=== PATIENT | male | born 1945 | race Caucasian/White ===

== ENCOUNTER 2016-12-07 11:30 | Day surgery (SDC) | payer MEDICARE ==
[~2016-12-07] VITALS: Ht 170.2 cm; Wt 86.5 kg
[2016-12-07 12:37] VITALS: BP 136/59; PULSE 68; RESP 16; O2SAT 95
[2016-12-07] MEDS ORDERED: FERR325T PO (12:39)
[2016-12-07] MEDS ORDERED: PLAV75TA29 PO (12:39)
[2016-12-07] MEDS ORDERED: METO100T9 PO (12:39)
[2016-12-07] MEDS ORDERED: ALPR0.25 PO (12:39)
[2016-12-07] MEDS ORDERED: ROSU10 PO (12:39)
[2016-12-07] MEDS ORDERED: ISOS60TA PO (12:39)
[2016-12-07] MEDS ORDERED: ENAL10TA PO (12:39)
[2016-12-07] MEDS ORDERED: ARIC10TA PO (12:39)
[2016-12-07] MEDS ORDERED: TRAZ50TA12 PO (12:39)
[2016-12-07] MEDS ORDERED: LYRI100C PO (12:39)
[2016-12-07] MEDS ORDERED: cpap (12:39)
[2016-12-07] MEDS ORDERED: CYMB60CA PO (12:39)
[2016-12-07] MEDS ORDERED: RANO500 PO (12:39)
[2016-12-07] MEDS ORDERED: DEXI60CA PO (12:39)
[2016-12-07] MEDS ORDERED: METF500T PO (12:39)
[2016-12-07] MEDS ORDERED: ALLO100T PO (12:39)
[2016-12-07] MEDS ORDERED: NAME10TA PO (12:39)
[2016-12-07 12:55] LABS: AUTOMATED NEUTROPHIL # 5.6 TH/MM3 (1.8-7.7); BASOPHIL # 0.1 TH/MM3 (0-0.2); BASOPHIL % 0.7 % (0.0-2.0); EOSINOPHIL # 0.1 TH/MM3 (0-0.4); EOSINOPHIL % 0.8 % (0.0-4.0); HEMATOCRIT 41.2 % (39.0-51.0); LYMPH % 32.5 % (9.0-44.0); LYMPHOCYTE # 3.1 TH/MM3 (1.0-4.8); MEAN CELL VOLUME 87.7 FL (80.0-100.0); MEAN CORPUSCULAR HEMOGLOBIN 31.6 PG (27.0-34.0); MONO % 7.2 % (0.0-8.0); NEUT % 58.8 % (16.0-70.0); PLATELET COUNT 160 TH/MM3 (150-450); RED CELL DISTRIBUTION WIDTH 13.5 % (11.6-17.2); WHITE BLOOD COUNT 9.4 TH/MM3 (4.0-11.0)
[2016-12-07 12:57] LABS: HEMO FLAGS AUTO DIFF
[2016-12-07 13:02] LABS: APTT (PATIENT) 24.6 SEC (24.3-30.1); INTERNATIONAL NORMALIZED RATIO 1.1 RATIO; PROTHROMBIN TIME - PATIENT 12.2 SEC (9.8-11.6)
[2016-12-07 13:07] LABS: BICARBONATE 29.5 MEQ/L (21.0-32.0); POTASSIUM 4.3 MEQ/L (3.5-5.1)
[2016-12-07 13:24] LABS: SCAN/DIFF AUTO DIFF CONFIRMED
[2016-12-07] MEDS ORDERED: HEPARIN-NS/PF INJ 500 ML ONE (13:26)
[2016-12-07] MEDS ORDERED: MIDAZOLAM HCL 2 MG/2 ML VIAL ONE (13:28)
[2016-12-07] MEDS ORDERED: HEPARIN SODIUM - IV 10,000 UNITS/10 ML VIAL ONE (13:56)
[2016-12-07] MEDS ORDERED: TIROFIBAN INFUSION INJ 250 ML IV ONE (13:58)
[2016-12-07] MEDS ORDERED: ASPIRIN 325 MG TAB ONE (14:20)
[2016-12-07] MEDS ORDERED: TIROFIBAN INFUSION INJ 250 ML IV SCH (14:25)
[2016-12-07] MEDS ORDERED: TEMAZEPAM 15 MG CAP PO PRN (14:30)
[2016-12-07] MEDS ORDERED: SODIUM CHLORIDE 0.9% FLUSH 5 ML FLUSH IVF PRN (14:30)
[2016-12-07] MEDS ORDERED: MISC INFORMATION XX ONE (14:30)
--- NOTE | 2016-12-07 14:56 | MA ---
cc: ALEJANDRINA RIVERA M.D. DATE: 12/07/2016 PROCEDURE Left heart catheterization, selective coronary angiography, graft angiography, left ventriculography, angioplasty and stent of the mid right coronary artery. PROCEDURE NOTES The patient was brought to the cardiac catheterization laboratory in a fasting state after having signed informed consent. The right groin was prepped and draped as per policy and anesthetized with 1% lidocaine. Arterial access was obtained via the right femoral artery and a 6-[place] sheath placed. Coronary arteriography was performed using 6-[place] Wen left 4.0 and right progressive catheters. Left ventriculography was done using a standard 6-[place] pigtail. Percutaneous coronary intervention was done as described below. All of the bypass grafts were engaged with a progressive right catheters. There were no apparent immediate complications. HEMODYNAMIC DATA Left ventricle 146 with an end-diastolic pressure of 15. Aorta 137/56 with a mean of 92. There was no significant transvalvular aortic gradient on pullback of the pigtail catheter. CORONARY ARTERIOGRAPHY The left main is probably diffusely diseased. There is up to 25% stenosis in its midportion. The left anterior descending demonstrates a tubular 85% stenosis very proximally. Competitive flow is evident in the mid to distal vessel. There may be a totally occluded diagonal arising from the proximal LAD. The left circumflex is a medium-sized vessel giving rise to a medium-sized obtuse marginal from its proximal portion and a relatively small caliber second obtuse marginal from its midsection. The first obtuse marginal demonstrates competitive flow from the graft. The first obtuse marginal has diffuse up to 15% stenosis proximally. The second obtuse marginal has 90% ostial and 90% mid disease at its bifurcation. The distal left circumflex, just distal to the second obtuse marginal, has diffuse possibly up to 90% stenosis. The right coronary artery is a fairly large dominant vessel which is diffusely diseased. A stent is evident in the distal third of the mid right coronary and the stent demonstrates up to 30% stenosis. Just prior to the stent there is a 75% tubular stenosis. The very proximal right coronary has diffuse disease up to 40% severity. GRAFT ANGIOGRAPHY A Y-graft originally placed to the right coronary system is totally occluded at its origin. A Y-graft to the ramus intermedius and diagonal is overall widely patent. The mecho[place]da diagonal has a 50% stenosis just distal to the anastomosis site. The left internal mammary artery to the LAD is widely patent. The mid to distal LAD has minimal luminal irregularities except the very distal LAD at the apex where there is a fairly long region of up to 80% stenosis where the vessel is very small. LEFT VENTRICULOGRAPHY Contrast injection of the left ventricle reveals no definite segmental wall motion abnormalities. Ejection fraction is estimated at 50%. PERCUTANEOUS CORONARY INTERVENTION DESCRIPTION Adequate heparin was given during the procedure to achieve an ACT of 271 seconds. Aggrastat was given as per protocol. Using a 6-[place] hockey-stick guiding catheter with side holes the ostium of the right coronary artery was re-engaged. A 0.014 [place] guidewire was positioned in the distal vessel without difficulty. Pre-dilation was done using a 3.0 mm Euphora balloon catheter. Stenting was done using a 3.5 x 15 mm Resolute stent which was deployed at 15 atmospheres for approximately 40 seconds. Final angiography shows overall good results with reduction of the initial stenosis to roughly 0% residual with no definite evidence for dissection or distal embolization. The patient tolerated the procedure well. There were no apparent immediate complications. He did not develop chest pain with balloon inflations. CONCLUSIONS 1. Severe three-vessel mechoopda coronary artery disease. 2. Patent left internal mammary artery to the LAD and patent Y-graft to the diagonal and ramus intermedius. 3. Chronically totally occluded Y-graft to the posterior descending artery and posterolateral branch. 4. Low normal left ventricular systolic function with estimated ejection fraction of 50%. 5. Status post successful angioplasty and stent of the mid right coronary artery. MD AKOSAU Moreno/LION /2:20 PM /2:45 PM DIOGENES
[2016-12-07] MEDS ORDERED: SODIUM CHLOR 0.9% 1000 ML INJ 1,000 ML IV SCH (15:00)
[2016-12-07] MEDS ORDERED: ALPRAZolam 0.25 MG TAB PO PRN (15:00)
[2016-12-07] MEDS: METOPROLOL SUCCINATE 50 MG EXTENDED RELEASE TAB PO SCH (15:00)
[2016-12-07] MEDS: PANTOPRAZOLE SOD 40 MG DELAYED RELEASE TAB PO SCH (16:00)
[2016-12-07] MEDS ORDERED: IOHEXOL 350 MG/ML 100 ML BTL (for Cath Lab) OTHER ONE (16:49)
[2016-12-07] MEDS ORDERED: IOHEXOL 350 MG/ML 50 ML BTL (for Cath Lab) OTHER ONE (16:49)
[2016-12-07 20:00] VITALS: BP 136/59; PULSE 72; RESP 18; TEMP 98; O2SAT 95
[2016-12-07] MEDS ORDERED: DONEPEZIL HCL 5 MG TAB PO SCH (21:00)
[2016-12-07] MEDS ORDERED: SODIUM CHLORIDE 0.9% FLUSH 5 ML FLUSH IVF SCH (21:00)
[2016-12-07] MEDS ORDERED: traZODone HCL 50 MG TAB PO SCH (21:00)
[2016-12-07] MEDS: RANOLAZINE 500 MG EXTENDED RELEASE TAB PO SCH (22:09)
[2016-12-07] MEDS: ENALAPRIL MALEATE 10 MG TAB PO SCH (22:10)
[2016-12-07] MEDS: PREGABALIN 100 MG CAP PO SCH (22:10)
[2016-12-07] MEDS: MEMANTINE HCL 10 MG TAB PO SCH (22:12)
[2016-12-08] VITALS: BP 128/68; PULSE 68; RESP 18; TEMP 98.4; O2SAT 94
[2016-12-08 03:28] LABS: AUTOMATED NEUTROPHIL # 6.2 TH/MM3 (1.8-7.7); BASOPHIL # 0.1 TH/MM3 (0-0.2); BASOPHIL % 0.7 % (0.0-2.0); EOSINOPHIL # 0.1 TH/MM3 (0-0.4); EOSINOPHIL % 1.2 % (0.0-4.0); HEMATOCRIT 42.3 % (39.0-51.0); HEMO FLAGS DIFF FINAL; LYMPH % 32.5 % (9.0-44.0); LYMPHOCYTE # 3.5 TH/MM3 (1.0-4.8); MEAN CELL VOLUME 87.3 FL (80.0-100.0); MEAN CORPUSCULAR HEMOGLOBIN 30.9 PG (27.0-34.0); MEAN CORPUSCULAR HGB CONC 35.5 % (32.0-36.0); MONO % 7.9 % (0.0-8.0); NEUT % 57.7 % (16.0-70.0); PLATELET COUNT 168 TH/MM3 (150-450); RED BLOOD COUNT 4.84 MIL/MM3 (4.50-5.90); RED CELL DISTRIBUTION WIDTH 13.6 % (11.6-17.2); WHITE BLOOD COUNT 10.8 TH/MM3 (4.0-11.0)
[2016-12-08 03:58] LABS: BICARBONATE 29.2 MEQ/L (21.0-32.0); POTASSIUM 4.2 MEQ/L (3.5-5.1)
[2016-12-08 04:00] VITALS: BP 141/68; PULSE 72; RESP 18; TEMP 97.8
[2016-12-08 04:00] LABS: HDL CHOLESTEROL 24.8 MG/DL (40.0-60.0)
[2016-12-08] MEDS ORDERED: ISOSORBIDE MONONITRATE 60 MG TAB PO SCH (07:00)
[2016-12-08] MEDS: PANTOPRAZOLE SOD 40 MG DELAYED RELEASE TAB PO SCH (08:20)
[2016-12-08] MEDS: ENALAPRIL MALEATE 10 MG TAB PO SCH (08:21)
[2016-12-08] MEDS: METOPROLOL SUCCINATE 50 MG EXTENDED RELEASE TAB PO SCH (08:21)
[2016-12-08] MEDS: RANOLAZINE 500 MG EXTENDED RELEASE TAB PO SCH (08:21)
[2016-12-08] MEDS: MEMANTINE HCL 10 MG TAB PO SCH (08:21)
[2016-12-08] MEDS: PREGABALIN 100 MG CAP PO SCH (08:28)
--- NOTE | 2016-12-08 08:42 | PD.CARD.PN ---
Subjective Subjective Remarks Denies groin pain, CP, dyspnea, dizziness. Objective Medications Item Value Date Time Clopidogrel 75 mg 12/08/16 0900 Bisulfate DAILY/PO 12/08/16 0820 (Plavix) Aspirin 81 mg 12/08/16 0900 (Ecotrin Ec) DAILY/PO 12/08/16 0821 Isosorbide 60 mg 12/08/16 0700 Mononitrate DAILY@07/PO 12/08/16 0602 (Imdur) Enalapril Maleate 10 mg 12/07/162099 (Vasotec) BID/PO 12/08/16 0821 Ranolazine 500 mg 12/07/162099 (Ranexa) Q12HR/PO 12/08/16 08 Metoprolol 100 mg 12/07/16 1500 Succinate DAILY/PO 12/08/16 08 (Toprol Xl) Vital Signs / I&O Vital Signs Date Time Temp Pulse Resp B/P Pulse Ox O2 Delivery O2 Flow Rate FiO2 12/08/16 04:00 97.8 72 18 141/68 12/08/16 00:00 98.4 68 18 128/68 94 12/07/16 20:00 98.0 72 18 136/59 95 12/07/16 14:53 95 Room Air 12/07/16 12:37 68 16 136/59 95 I/O 12/07/16 12/07/16 12/07/16 12/08/16 12/08/16 12/08/16 07:00 15:00 23:00 07:00 15:00 23:00 Intake Total 200 ml Balance 200 ml Intake Oral 200 ml # Voids 3 Physical Exam GENERAL: Well developed, well nourished. No acute distress. HEENT: Jugular venous pressure is normal. CHEST: Lungs clear to auscultation anteriorly. CARDIAC: Regular rate and rhythm without S3, S4, or murmur. ABDOMEN: Soft, nontender, no hepatosplenomegaly. Bowel sounds present. EXTREMITIES: No clubbing, cyanosis, or edema. Right groin nontender, no hematoma. Laboratory Laboratory Tests Test 12/07/16 12/08/16 12:30 03:08 White Blood Count 9.4 TH/MM3 10.8 TH/MM3 Red Blood Count 4.70 MIL/MM3 4.84 MIL/MM3 Hemoglobin 14.8 GM/DL 15.0 GM/DL Hematocrit 41.2 % 42.3 % Mean Corpuscular Volume 87.7 FL 87.3 FL Mean Corpuscular Hemoglobin 31.6 PG 30.9 PG Mean Corpuscular Hemoglobin 36.0 % 35.5 % Concent Red Cell Distribution Width 13.5 % 13.6 % Platelet Count 160 TH/MM3 168 TH/MM3 Mean Platelet Volume 8.9 FL 8.6 FL Neutrophils (%) (Auto) 58.8 % 57.7 % Lymphocytes (%) (Auto) 32.5 % 32.5 % Monocytes (%) (Auto) 7.2 % 7.9 % Eosinophils (%) (Auto) 0.8 % 1.2 % Basophils (%) (Auto) 0.7 % 0.7 % Neutrophils # (Auto) 5.6 TH/MM3 6.2 TH/MM3 Lymphocytes # (Auto) 3.1 TH/MM3 3.5 TH/MM3 Monocytes # (Auto) 0.7 TH/MM3 0.9 TH/MM3 Eosinophils # (Auto) 0.1 TH/MM3 0.1 TH/MM3 Basophils # (Auto) 0.1 TH/MM3 0.1 TH/MM3 CBC Comment AUTO DIFF DIFF FINAL Differential Comment AUTO DIFF CONFIRMED Prothrombin Time 12.2 SEC Prothromb Time International 1.1 RATIO Ratio Activated Partial 24.6 SEC Thromboplast Time Sodium Level 138 MEQ/L 138 MEQ/L Potassium Level 4.3 MEQ/L 4.2 MEQ/L Chloride Level 99 MEQ/L 102 MEQ/L Carbon Dioxide Level 29.5 MEQ/L 29.2 MEQ/L Anion Gap 10 MEQ/L 7 MEQ/L Blood Urea Nitrogen 15 MG/DL 14 MG/DL Creatinine 1.04 MG/DL 0.99 MG/DL Estimat Glomerular Filtration 70 ML/MIN 74 ML/MIN Rate Random Glucose 233 MG/DL 216 MG/DL Calcium Level 9.2 MG/DL 8.7 MG/DL Total Creatine Kinase 31 U/L Triglycerides Level 223 MG/DL Cholesterol Level 118 MG/DL LDL Cholesterol 49 MG/DL HDL Cholesterol 24.8 MG/DL Cholesterol/HDL Ratio 4.75 RATIO Assessment and Plan Problem List: (1) CAD (coronary artery disease) Assessment and Plan: Doing well s/p stent of [place] RCA yesterday. Groin stable. AM labs OK except hyperglycemia. To discharge today, same home medications plus daily baby aspirin. 4 week f/u with me. Ad amanuel activity. (2) Ischemic cardiomyopathy Assessment and Plan: EF on cath yesterday low normal. To continue VON-I, beta pawan. (3) Hyperlipidemia Assessment and Plan: Acceptable lipid profile with LDL 40's. Continue Crestor. Code Status full code Discussed Condition With patient and Problem Qualifiers (1) CAD (coronary artery disease): Qualified Code: I25.110 - Coronary artery disease involving [place] coronary artery of [place] heart with unstable angina pectoris (2) Hyperlipidemia: Qualified Code: E78.2 - Mixed hyperlipidemia Teja Sterling MD Dec 08, 2016 08:42
[2016-12-08] MEDS ORDERED: ASPI81TA11 PO (08:44)
[2016-12-08] MEDS ORDERED: ASPIRIN EC 81 MG TABEC PO SCH (09:00)
[2016-12-08] MEDS ORDERED: ASPIRIN 325 MG TAB PO SCH (09:00)
[2016-12-08] MEDS ORDERED: DULoxetine HCl DR 60 MG CAP PO SCH (09:00)
[2016-12-08] MEDS ORDERED: CLOPIDOGREL 75 MG TAB PO SCH (09:00)
[2016-12-08] MEDS ORDERED: ALLOPURINOL 100 MG TAB PO SCH (09:00)
--- NOTE | 2016-12-08 14:55 | EKG ---
Date Performed: 12/07/2016 Time Performed: 17:37:24 PTAGE: 71 years EKG: Sinus rhythm . Right bundle branch block Extensive infarct - age undetermined Low QRS voltages in precordial leads Compared to prior tracing no significant change Abnormal ECG PREVIOUS TRACING : 12/07/2016 12.57 DOCTOR: Yamilex Wiley Interpretating Date/Time 12/08/2016 14:54:45
--- NOTE | 2016-12-08 14:55 | EKG ---
Date Performed: 12/07/2016 Time Performed: 12:57:08 PTAGE: 71 years EKG: Sinus rhythm with borderline 1st degree A-V block. Right bundle branch block Inferior infarct - age undetermined Lateral infarct - age undetermined Low QRS voltages in precordial leads Compared to the previous trac ing the patient has a new Right bundle branch block Abnormal ECG PREVIOUS TRACING : 05/31/1996 08.22 DOCTOR: Yamilex Wiley Interpretating Date/Time 12/08/2016 14:54:33
== END 2016-12-08 09:32 | disposition home or self-care (01) ==
LOC: HDIC 11:30 → HCAT 11:30 → HSDI 17:11 → HCAT 17:11 → UNDOADMOB 17:11 → HDIC 20:08 → HSDI 20:08 → UNDODISOB 12-08 09:32
PROVIDERS: ATTEND Internal Medicine Cardiovascular Disease
DX: I25.110 Atherosclerotic heart disease of native coronary artery with unstable angina pectoris (principal); E11.9 Type 2 diabetes mellitus without complications; Z79.84 Long term (current) use of oral hypoglycemic drugs; E78.2 Mixed hyperlipidemia; I10 Essential (primary) hypertension; Z79.01 Long term (current) use of anticoagulants
CPT/HCPCS: 80048; 80061; 82550; 85002; 85025; 85347; 85610; 85730; 92928; 93005; 93458; C1725; C1769; C1874; C1887; C1893; J1644; J2250; J3010; J3246; Q9967